=== PATIENT | male | born 1955 | race Caucasian/White ===

== ENCOUNTER 2016-09-18 09:42 | Outpatient (CLI) | payer OTHER ==
[2013-01-05 09:49] VITALS: BP 147/67
== END 2016-09-18 09:43 ==
LOC: LAB 09:42
PROVIDERS: ATTEND Family Medicine
DX: E78.00 Pure hypercholesterolemia, unspecified (principal); E03.9 Hypothyroidism, unspecified; E11.9 Type 2 diabetes mellitus without complications
CPT/HCPCS: 36415; 80061; 83036; 84443

== ENCOUNTER 2016-11-23 14:46 | Emergency (ER) | payer OTHER ==
[2016-11-23] MEDS ORDERED: IBUPROFEN 400 MG TABLET PO ONE ×2 (15:35→15:38)
--- NOTE | 2016-11-23 15:52 | ED Physician Documentation ---
Hand Injury - HISTORIAN Historian: patient - HPI Stated Complaint: FINGER INJURY Chief Complaint: Hand Injury Additional Information: caught left 5th finger in car door Onset: just prior to arrival Where: home Severity: moderate Duration: persistent since (1100) Context: other (as above) Location of Injury: L fingers (5th) Modifying Factors: pain on movement Further Comments: no - ROS CONST: no problems GI/: denies: problems urinating, nausea, vomiting NEURO: none CVS/RESP: none LNMP: denies: , post-menopausal EYES/ENT: none MS/SKIN/LYMPH: none - PAST HX Past History: diabetes Type 2, other (depression, hyperlipidemia, htn, hypothyroidism) Immunizations: referred to PCP Allergies/Adverse Reactions: Allergies Allergy/AdvReac Type Severity Reaction Status Date / Time No Known Allergies Allergy Verified 11/23/16 15:08 Home Medications: Ambulatory Orders Medication Instructions Recorded Atorvastatin Calcium 20 mg PO HS 11/23/16 Paroxetine HCl [Paxil] 30 mg PO D 11/23/16 clonazePAM [Klonopin] 0.5 mg PO HS 11/23/16 - SOCIAL HX Smoking History: non-smoker Alcohol Use: none Drug Use: none - FAMILY HX Family History: no significant history - VITAL SIGNS Vital Signs: Vital Signs Temp Pulse Resp BP Pulse Ox 98.1 F 98 H 18 113/88 98 11/23/16 14:46 11/23/16 14:46 11/23/16 14:46 11/23/16 14:46 11/23/16 14:46 - REVIEWED ASSESSMENTS Nursing Assessment Reviewed: Yes Vitals Reviewed: Yes Progress - Results/Orders Results/Orders: x-ray left 5th finger ordered - Progress Progress: pt's finger relocated successfully and splinted, 800 mg motrin p.o. in er Critical Care Note - Critical Care Note Total Time (mins): 0 ED Results Lab/Radiology - Lab Results Lab Results: none ordered - Radiology Radiology Impressions: finger x-ray shows dislocation at pip jt. - Orders Orders: ED Orders Category Date Time Status Finger Splint 1T Care 11/23/16 15:39 Active XRAY LITTLE FINGER [FINGER 2 VIEWS OR MORE] [RAD] Stat Exams 11/23/16 Ordered Ibuprofen [Advil] Med 11/23/16 15:38 Discontinued 800 mg PO .STK-MED ONE Ibuprofen [Advil] Med 11/23/16 15:35 Discontinued 800 mg PO NOW ONE Hand Injury Physical Exam - Exam General Appearance: alert, mild distress Hand: other (dislocation left 5th pip jt.) Wrist: normal inspection, non-tender, no evidence of injury, normal ROM Neuro: sensation nml, motor nml Vascular: no vascular compromise Tendons: tendon function nml Forearm/Elbow/Arm: uninjured above wrist Skin: warm/dry, normal color Head/ENT: nml inspection, pharynx nml Neck/Back: nml inspection, non-tender Resp/CVS: chest non-tender, breath sounds nml, heart sounds nml, no resp. distress, lungs clear, reg. rate & rhythm Abdomen: non-tender, no organomegaly, nml bowel sounds, no distention, tenderness Discharge Clincal Impression: Dislocation closed, finger Qualifiers: Encounter type: initial encounter Qualified Code(s): S63.259A - Unspecified dislocation of unspecified finger, initial encounter Referrals: Raghav Jones MD [Primary Care Provider] - 2 Days Home Medications: Ambulatory Orders Atorvastatin Calcium 20 mg PO HS 11/23/16 Paroxetine HCl [Paxil] 30 mg PO D 11/23/16 clonazePAM [Klonopin] 0.5 mg PO HS 11/23/16 Comments: Discharged home with script for , Meloxicam 7.5 mg p.o. bid for 3 days. Condition: Stable Disposition: 01 HOME, SELF-CARE Decision to Admit: NO Decision Time: 03:50
[2016-11-23 16:21] VITALS: BP 114/80
--- NOTE | 2016-11-23 21:58 | Diagnostic Imaging Report ---
VIDHYA MOORE~ [facility] [address] [address] ~ ~ ~ ~ Report Submission Date: Nov 23, 2016 3:38:57 PM CDT Patient ~ Study Name: DENILSON GONZALEZ ~ Date: Nov 23, 2016 3:17:55 PM CDT ~ Modality Type: CR Gender: M ~ Description: UPPER EXTREMITY : 57 ~ Institution: [facility] Physician: VIDHYA MOORE ~ ~ ~ ~ Left 5th digit Clinical history: Pain Technique AP lateral oblique Findings: There is a dorsal dislocation of the pip joint of the left 5th digit. No fracture is seen. There is about 5 mm of proximal displacement of the middle phalanx. Impression: Dorsal dislocation proximal interphalangeal joint of the left 5th digit ~ Electronically signed on Nov 23, 2016 3:38:57 PM CDT by: Alex ROD
== END 2016-11-23 15:50 | disposition home or self-care (01) ==
LOC: ED 14:46
DX: S63.259A Unspecified dislocation of unspecified finger, initial encounter (principal); W23.0XXA Caught, crushed, jammed, or pinched between moving objects, initial encounter; Y93.9 Activity, unspecified; Y99.9 Unspecified external cause status
CPT/HCPCS: 26770; 73140; 99283

== ENCOUNTER 2018-01-24 08:13 | Outpatient (CLI) | payer OTHER ==
[2018-01-24 08:31] LABS: BASOPHILS % 0.5 (0.0-1.5); EOSINOPHILS % 2.2 % (0.0-6.8); MEAN CORPUSCULAR VOLUME 88.9 fl (80.0-100.0); MONOCYTES % 4.7 % (0.0-11.0); NEUTROPHILS # 4.6 # k/uL (1.4-7.7)
[2018-01-24 08:58] LABS: eGFR (African) > 60; eGFR (Non-African) > 60
== END 2018-01-24 08:15 ==
LOC: LAB 08:13
PROVIDERS: ATTEND Family Medicine
DX: I10 Essential (primary) hypertension (principal); E11.9 Type 2 diabetes mellitus without complications; N40.1 Benign prostatic hyperplasia with lower urinary tract symptoms
CPT/HCPCS: 36415; 80053; 80061; 83036; 84153; 85025

== ENCOUNTER 2019-03-16 10:33 | Outpatient (CLI) | payer OTHER ==
[2019-03-16 11:07] LABS: BASOPHILS % 0.6 % (0.0-1.5); NEUTROPHILS # 3.2 # k/uL (1.4-7.7)
[2019-03-16 11:32] LABS: A1C 5.2 % (<5.7)
[2019-03-16 12:03] LABS: HDL 41 mg/dL (>40); eGFR (Non-African) > 60
== END 2019-03-16 10:35 ==
LOC: LAB 10:33
PROVIDERS: ATTEND Family Medicine
DX: E11.9 Type 2 diabetes mellitus without complications (principal)
CPT/HCPCS: 36415; 80053; 80061; 83036; 84443; 85025

== ENCOUNTER 2019-05-04 09:38 | Day surgery (SDC) | payer OTHER ==
[~2019-05-04 09:38] MED LIST: GLYCOPYRROLATE 0.2 MG/1 ML 1 ML ONE; LACTATED RINGERS 1,000 ML IV.SOLN IV ONE; LIDOCAINE HCL 2% PF 100MG/5ML VIAL IJ ONE; PHENYLEPHRINE HCL 10 MG/1 ML ONE; PROPOFOL 200 MG/20 ML VIAL IV ONE
--- NOTE | 2019-05-18 17:08 | GI Report ---
DATE OF PROCEDURE: 05/04/2019 REFERRING PHYSICIAN: Dr. Jones. PROCEDURE PERFORMED: Colonoscopy with polypectomy. SURGEON: Adán Belcher M.D., F.A.CCrisP. INDICATION FOR PROCEDURE: The patient is a 63-year-old man who is referred with a history of previous polyps. He is diabetic. He denies any changes in stool or bleeding. He is a high risk screen. He is referred for evaluation. He is on Paxil, and Klonopin. The patient has central obesity with a weight of 235, and height of 510. PROCEDURE MEDICATION: Propofol, as per Anesthesia. DESCRIPTION OF PROCEDURE: The Olympus video colonoscope was advanced through the rectum. The prep was good. An extremely atonic, redundant colon. It took some time straightening loops with nurse compression to finally reach the base of the cecum. On slow withdrawal, the cecum was normal. In the transverse colon the patient had about a 3-4 mm polyp removed with electrocautery. Redundant descending colon and sigmoid. In the sigmoid colon there was another 3 mm flat polyp removed with a cold snare. Retroflexion in the rectum shows hemorrhoids. The patient tolerated the procedure well. FINDINGS: 1. Two polyps removed, one in the transverse with electrocautery, and one in the sigmoid with just a cold snare. 2. A very atonic, redundant colon. RECOMMENDATIONS: 1. Would increase fiber in the diet such as Benefiber, fruits and vegetables as allowed with his diabetic diet. 2. Pending the pathology of the polyps, will probably need his colon relooked at again within 5 years. ADÁN BELCHER M.D., F.A.C.P. YVROSE/nito R: 05/05/19 Job#: [id number] Cc: Dr. Karen ROD
== END 2019-05-04 13:39 | disposition home or self-care (01) ==
LOC: OPSURG 09:38
PROVIDERS: ATTEND Internal Medicine Gastroenterology
DX: Z12.11 Encounter for screening for malignant neoplasm of colon (principal); Z86.010 Personal history of colon polyps; D12.5 Benign neoplasm of sigmoid colon; K63.5 Polyp of colon; K63.89 Other specified diseases of intestine; K64.9 Unspecified hemorrhoids; E11.9 Type 2 diabetes mellitus without complications
CPT/HCPCS: 45385; 45388; 88305; J2001; J2370; J2704; J3490; J7120